=== PATIENT | male | born 1990 | race African-American/Black ===

== ENCOUNTER 2019-01-31 21:04 | Emergency (ER) | payer OTHER ==
[~2019-01-31] VITALS: Ht 185.4 cm; Wt 127.0 kg
--- NOTE | 2019-01-31 21:26 | Emergency Room Report ---
History of Present Illness General Chief Complaint: Lower Back Pain or Injury Source: Patient Present Illness HPI This is a 28-year-old male with no past medical history. He presents with complaint of fall and bruising to his buttock area. He slipped down the stairs and landed directly on his butt. He said he hit the edge of the steps. He has been having lower back pain and there is bruising to his right buttock area. No other injury. Not pass out. Pain is 8 out of 10. Worse with sitting. Better laying on his belly. No incontinent of bowel or urine. Allergies: Coded Allergies: No Known Allergies (Unverified , 01/31/19) Patient History Past Medical History: see triage record, old chart reviewed Past Surgical History: none Pertinent Family History: none Social History: Denies: smoking Immunizations: other Reviewed Nursing Documentation: PMH: Agreed; PSxH: Agreed Nursing Documentation-PM Past Medical History: No Stated History Review of Systems Eye: Denies: eye pain, blurred vision ENT: Denies: ear pain, nose congestion, throat swelling Respiratory: Denies: cough, shortness of breath Cardiovascular: Denies: chest pain, palpitations Gastrointestinal: Denies: abdominal pain, diarrhea, nausea, vomiting Musculoskeletal: Reports: back pain; Denies: joint pain Skin: Denies: rash Neurological: Denies: headache, numbness Endocrine: Denies: increased thirst, increased urine Hematologic/Lymphatic: Denies: easy bruising All Other Systems: negative except mentioned in HPI Physical Exam Vital Signs Date Time Temp Pulse Resp B/P (MAP) Pulse Ox O2 Delivery O2 Flow Rate FiO2 01/31/19 21:08 98.2 88 16 123/75 (91) 98 Room Air Vitals normal Sp02 EP Interpretation: reviewed, normal General Appearance: well appearing, no apparent distress, alert Head: normocephalic, atraumatic Eyes: bilateral eye PERRL, bilateral eye EOMI ENT: hearing grossly normal, normal pharynx Neck: full range of motion, supple, no meningismus Respiratory: chest non-tender, lungs clear, normal breath sounds Cardiovascular #1: regular rate, rhythm, no murmur Gastrointestinal: normal bowel sounds, non tender, no mass, no organomegaly, no bruit, non-distended Musculoskeletal: normal range of motion, gait/station normal, tender - Tenderness to the lower lumbar/sacral area. Right buttock showed a large ecchymosis horizontally across the buttock. Psychiatric: mood/affect normal Medical Decision Making Diagnostic Impression: Primary Impression: Lumbar strain Qualified Codes: S39.012A - Strain of muscle, fascia and tendon of lower back , initial encounter Additional Impression: Contusion, buttock Qualified Codes: S30.0XXA - Contusion of lower back and pelvis, initial encounter ER Course Patient with lower back pain and buttock contusion from a fall. No fracture or dislocation. Will discharge home. Other X-Ray Diagnostic Results Other X-Ray Diagnostic Results : X-Ray ordered: Lumbar x-rays # of Views/Limited Vs Complete: 3 View Indication: Pain EP Interpretation: Yes Interpretation: no dislocation, no soft tissue swelling, no fractures Impression: No acute disease Electronically Signed by: Dameon Quiroga MD Last Vital Signs Date Time Temp Pulse Resp B/P (MAP) Pulse Ox O2 Delivery O2 Flow Rate FiO2 01/31/19 21:08 98.2 88 16 123/75 (91) 98 Room Air Status: improved Disposition: HOME, SELF-CARE Condition: Stable Scripts Ibuprofen* (MOTRIN*) 600 Mg Tablet 600 MG ORAL THREE TIMES A DAY, #30 TAB 0 Refills Prov: Dameon Quiroga MD 01/31/19 Additional Instructions: Follow-up with your doctor in 7 days but return if symptoms worsen. Dameon Quiroga MD Jan 31, 2019 21:25
[2019-01-31] MEDS ORDERED: HYDROcodone/Acetamin 5/325 tab ORAL ONE (21:30)
[2019-01-31] MEDS ORDERED: IBUPROFEN600 MG ORAL (21:55)
[2019-01-31 22:06] VITALS: BP 123/75
--- NOTE | 2019-02-01 16:46 | Diagnostic Imaging Report ---
Indication: Low back pain, trauma Technique: 3 views of the lumbar spine Comparison: None Findings: Bony alignment is normal. Vertebral body heights are preserved. The disc spaces are preserved. The pedicles are intact. Sacral arches are preserved. Sacroiliac joint spaces are preserved Impression: Negative
== END 2019-01-31 22:10 | disposition home or self-care (01) ==
LOC: EMR 22:08
DX: S30.0XXA Contusion of lower back and pelvis, initial encounter (principal); S39.012A Strain of muscle, fascia and tendon of lower back, initial encounter; W01.0XXA Fall on same level from slipping, tripping and stumbling without subsequent striking against object, initial encounter; Y92.9 Unspecified place or not applicable
CPT/HCPCS: 72020; Z7502; 99283